=== PATIENT | male | born 1980 | race Hispanic/Latino ===

== ENCOUNTER 2018-07-02 12:34 | Emergency (ER) | payer SELFPAY ==
--- NOTE | 2018-07-02 16:48 | ER ---
Nurse's Notes [facility] Name: Quang Quintana Age: 38 yrs Sex: Male : 1980 Arrival Date: 07/02/2018 Time: 12:38 Bed 28 Private MD: Diagnosis: Laceration without foreign body of eyelid and periocular area Presentation: 07/02 12:49 Presenting complaint: Patient states: right eye injury today, was throwing metal stuff sv in the trash and a piece of metal flew into his right eye. Pt has lacerations to the right eyelids. Transition of care: patient was not received from another setting of care. The patient denies any loss of vision. Onset of symptoms was July 02, 2018. Care prior to arrival: None. 12:49 Method Of Arrival: Ambulatory sv 12:49 Acuity: ASIF 3 sv 13:00 Mechanism of Injury: States "I was throwing a metal pipe in the garbage and it bounced kr2 up and hit me in the face". Risk Assessment: Do you want to hurt yourself or someone else? Patient reports no desire to harm self or others. Initial Sepsis Screen: Does the patient meet any 2 criteria? No. Patient's initial sepsis screen is negative. Does the patient have a suspected source of infection? Yes: Skin breakdown/wound. Historical: - Allergies: 12:51 No Known Allergies; sv - Home Meds: 12:51 None [Active]; sv - PMHx: 12:51 None; sv - PSHx: 12:51 Hernia repair; sv - Immunization history:: Last tetanus immunization: < 10 years ago. - Social history:: Smoking status: Patient/guardian denies using tobacco. - Ebola Screening: : No symptoms or risks identified at this time. Screenin:00 Abuse screen: Denies threats or abuse. Denies injuries from another. Nutritional kr2 screening: No deficits noted. Tuberculosis screening: No symptoms or risk factors identified. Fall Risk None identified. Assessment: 13:00 General: Appears in no apparent distress. uncomfortable, well groomed, well developed, kr2 well nourished, Behavior is calm, cooperative, appropriate for age. Pain: Complains of pain in right supraorbital ridge, right upper eyelid, medial canthus of right eye, lateral canthus of right eye and right lower eyelid Pain does not radiate. Pain currently is 8 out of 10 on a pain scale. Quality of pain is described as aching, tender, Is continuous. Neuro: Level of Consciousness is awake, alert, Oriented to person, place, time, situation. Cardiovascular: Capillary refill < 3 seconds in bilateral fingers Patient's skin is warm and dry. Respiratory: Airway is patent Respiratory effort is even, unlabored, Respiratory pattern is regular, symmetrical. GI: Abdomen is flat, non-distended. EENT: Eyes are tearing on right inner canthus Sclera/Cornea are clear in outer aspect of conjuctiva of right eye, iris of right eye and inner aspect of conjuctiva of right eye. Derm: Skin is healthy with good turgor, Skin is pink, warm \\T\\ dry. Musculoskeletal: Circulation, motion, and sensation intact. Injury Description: Laceration sustained to medial canthus of right eye and right lower eyelid and right inner canthus and right upper eyelid is clean, was sustained 30-60 minutes ago. no active bleeding noted at this time. 14:00 Reassessment: Patient appears in no apparent distress at this time. Patient and/or kr2 family updated on plan of care and expected duration. Pain level reassessed. Patient is alert, oriented x 3, equal unlabored respirations, skin warm/dry/pink. Patient denies pain at this time. 15:00 Reassessment: No changes from previously documented assessment. kr2 16:00 Reassessment: Patient appears in no apparent distress at this time. Patient and/or kr2 family updated on plan of care and expected duration. Pain level reassessed. Patient is alert, oriented x 3, equal unlabored respirations, skin warm/dry/pink. Patient denies pain at this time. Vital Signs: 12:51 BP 126 / 98; Pulse 74; Resp 18; Temp 97.5; Pulse Ox 100% ; Weight 102.51 kg; Height 6 sv ft. 1 in. (185.42 cm); Pain 2/10; 15:00 BP 118 / 78; Pulse 70; Resp 16; Pulse Ox 99% ; kr2 17:00 BP 124 / 90; Pulse 78; Resp 16; Pulse Ox 100% ; kr2 12:51 Body Mass Index 29.82 (102.51 kg, 185.42 cm) sv Visual Acuity: 13:00 Left Eye Visual acuity 20/20, ; Right Eye Visual acuity 20/20, ; Without Lenses; kr2 ED Course: 12:38 Patient arrived in ED. rg4 12:51 Triage completed. sv 12:52 Arm band placed on. sv 12:53 Loren Knight, RN is Primary Nurse. kr2 12:55 Master Cancino PA is PHCP. jr8 12:55 Bradley Ram MD is Attending Physician. jr8 13:00 Patient has correct armband on for positive identification. Bed in low position. Call kr2 light in reach. Side rails up X 1. Adult w/ patient. Pulse ox on. NIBP on. Door closed. Head of bed elevated. 14:13 initiated a transfer with Brit at the [facility] transfer center. eb 14:55 [facility] called and declined due to being at capacity. eb 16:48 Jose Chávez MD is Referral Physician. jr8 17:00 No provider procedures requiring assistance completed. Patient did not have IV access kr2 during this emergency room visit. 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 Exp: kr2 08/17/2020. Lot #: [id number]. } Route: IM; Site: right deltoid; 23:35 Follow up: Response: No adverse reaction kr2 Outcome: 16:48 Discharge ordered by . jr8 17:00 Discharged to home ambulatory, with family. kr2 17:00 Condition: good 17:00 Discharge instructions given to patient, Instructed on discharge instructions, follow up and referral plans. medication usage, Demonstrated understanding of instructions, follow-up care, medications, Prescriptions given X 1. 17:06 Patient left the ED. kr2 Signatures: Ewelina Bro RN RN Master Cancino PA PA jr8 Crystal Dotson rg4 Loren Knight RN RN kr2 Catie Lawrence Corrections: (The following items were deleted from the chart) 23:34 23:33 Right Eye Without Lenses, 20/20, Left Eye Without Lenses, 20/20 kr2 kr2
--- NOTE | 2018-07-02 16:49 | EDPHYS ---
Physician Documentation [facility] Name: Quang Quintana Age: 38 yrs Sex: Male : 1980 Arrival Date: 07/02/2018 Time: 12:38 Bed 28 Private MD: ED Physician Bradley Ram HPI: 07/02 14:48 This 38 yrs old Male presents to ER via Ambulatory with complaints of Eye jr8 Injury. 14:48 Onset: The symptoms/episode began/occurred acutely, today. Associated signs and jr8 symptoms: Pertinent positives: None. Patient does not utilize any form of vision correction. Severity of symptoms: At their worst the symptoms were moderate in the emergency department the symptoms are unchanged. The patient has not experienced similar symptoms in the past. The patient has not recently seen a physician. Was at work when metal bar hit him in right eye. Denies intraocular pain or visual disturbance. Stated that he has lacerations to external eye . Historical: - Allergies: 12:51 No Known Allergies; sv - Home Meds: 12:51 None [Active]; sv - PMHx: 12:51 None; sv - PSHx: 12:51 Hernia repair; sv - Immunization history:: Last tetanus immunization: < 10 years ago. - Social history:: Smoking status: Patient/guardian denies using tobacco. - Ebola Screening: : No symptoms or risks identified at this time. ROS: 14:48 ENT: Negative for injury, pain, and discharge, Neck: Negative for injury, pain, and jr8 swelling, Cardiovascular: Negative for chest pain, palpitations, and edema, Respiratory: Negative for shortness of breath, cough, wheezing, and pleuritic chest pain, Abdomen/GI: Negative for abdominal pain, nausea, vomiting, diarrhea, and constipation, Back: Negative for injury and pain, MS/Extremity: Negative for injury and deformity, Skin: Negative for injury, rash, and discoloration, Neuro: Negative for headache, weakness, numbness, tingling, and seizure. 14:48 Eyes: Positive for injury or acute deformity, of the right upper eyelid, right inner canthus and right lower eyelid. Exam: 14:48 Visual Acuity: I have reviewed the nursing documentation. Visual acuity is within jr8 normal limits. 14:48 Head/Face: Normocephalic, atraumatic. ENT: Nares patent. No nasal discharge, no septal abnormalities noted. Tympanic membranes are normal and external auditory canals are clear. Oropharynx with no redness, swelling, or masses, exudates, or evidence of obstruction, uvula midline. Mucous membranes moist. Neck: Trachea midline, no thyromegaly or masses palpated, and no cervical lymphadenopathy. Supple, full range of motion without nuchal rigidity, or vertebral point tenderness. No Meningismus. Cardiovascular: Regular rate and rhythm with a normal S1 and S2. No gallops, murmurs, or rubs. Normal PMI, no JVD. No pulse deficits. Respiratory: Lungs have equal breath sounds bilaterally, clear to auscultation and percussion. No rales, rhonchi or wheezes noted. No increased work of breathing, no retractions or nasal flaring. Abdomen/GI: Soft, non-tender, with normal bowel sounds. No distension or tympany. No guarding or rebound. No evidence of tenderness throughout. Back: No spinal tenderness. No costovertebral tenderness. Full range of motion. Skin: Warm, dry with normal turgor. Normal color with no rashes, no lesions, and no evidence of cellulitis. MS/ Extremity: Pulses equal, no cyanosis. Neurovascular intact. Full, normal range of motion. Neuro: Awake and alert, GCS 15, oriented to person, place, time, and situation. Cranial nerves II-XII grossly intact. Motor strength 5/5 in all extremities. Sensory grossly intact. Cerebellar exam normal. Normal gait. 14:48 Eyes: Periorbital structures: laceration, that is deep, that is linear, on the right upper eyelid, medial canthus of right eye and right lower eyelid, Pupils: equal, round, and reactive to light and accomodation, Extraocular movements: intact throughout, Conjunctiva: normal, Corneas: are normal, Sclera: no appreciated abnormality, Anterior chamber: normal, no hyphema, Examination of the other eye reveals no obvious gross abnormality. Vital Signs: 12:51 BP 126 / 98; Pulse 74; Resp 18; Temp 97.5; Pulse Ox 100% ; Weight 102.51 kg; Height 6 sv ft. 1 in. (185.42 cm); Pain 2/10; 15:00 BP 118 / 78; Pulse 70; Resp 16; Pulse Ox 99% ; kr2 17:00 BP 124 / 90; Pulse 78; Resp 16; Pulse Ox 100% ; kr2 12:51 Body Mass Index 29.82 (102.51 kg, 185.42 cm) sv Visual Acuity: 13:00 Left Eye Visual acuity 20/20, ; Right Eye Visual acuity 20/20, ; Without Lenses; kr2 MDM: 12:56 Patient medically screened. jr8 14:50 Data reviewed: vital signs, nurses notes. Data interpreted: Pulse oximetry: on room air jr8 is 100 %. Interpretation: normal. Counseling: I had a detailed discussion with the patient and/or guardian regarding: the historical points, exam findings, and any diagnostic results supporting the discharge/admit diagnosis, the need to transfer to another facility. ED course: Had Dr. Spicer evaluate patient as well. Patient has two lacerations. One on the upper lid down to the musculature and extending to the medial right canthus that penetrates deep medial. Has a second lower lid one extending to the medial canthus as well. Consulted Dr. Chávez on this case and will see patient in the ED for repair . 16:43 ED course: Dr. Chávez came and evaluated patient. Options given to go to surgery for jr8 possible repair or to leave to let naturally heal since his lower duct was intact. Patient opted for natural healing process. Will be put on antibiotics. 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 Exp: kr2 08/17/2020. Lot #: [id number]. } Route: IM; Site: right deltoid; 23:35 Follow up: Response: No adverse reaction kr2 Disposition: 07/02/18 16:48 Discharged to Home. Impression: Laceration without foreign body of eyelid and periocular area. - Condition is Stable. - Discharge Instructions: Laceration Care, Adult. - Prescriptions for Keflex 500 mg Oral Capsule - take 1 capsule by ORAL route every 8 hours for 7 days; 21 capsule. - Medication Reconciliation Form, Thank You Letter, Antibiotic Education, Prescription Opioid Use form. - Follow up: Jose Chávez MD; When: As needed; Reason: Recheck today's complaints, Continuance of care, Re-evaluation by your physician. - Problem is new. - Symptoms have improved. Addendum: 07/04/2018 06:30 Co-signature as Attending Physician, Bradley Ram MD I agree with the assessment and c huertas plan of care. Signatures: Ewelina Bro, RN RN Bradley Echols MD MD cha Roszak, Josh, PA PA jr8 Loren Knight, RN RN kr2 Corrections: (The following items were deleted from the chart) 07/02 15:07 14:50 ED course: Had Dr. Spicer evaluate patient as well. Patient has two lacerations. jr8 One on the upper lid down to the musculature and extending to the medial right canthus that penetrates deep medial. Has a second lower lid one extending to the medial canthus as well. After evaluation it was in the best interest of the patient to be sent out to out for ophthalmologic evaluation . jr8 17:06 16:48 07/02/2018 16:48 Discharged to Home. Impression: Laceration without foreign body kr2 of eyelid and periocular area. Condition is Stable. Forms are Medication Reconciliation Form, Thank You Letter, Antibiotic Education, Prescription Opioid Use. Follow up: Jose Chávez; When: As needed; Reason: Recheck today's complaints, Continuance of care, Re-evaluation by your physician. Problem is new. Symptoms have improved. jr8
[2018-07-02] MEDS ORDERED: TETANUS & DIPHTHERIA TOX,ADULT 0.5 ML VIAL ONE (17:11)
== END 2018-07-02 17:06 | disposition home or self-care (01) ==
LOC: ER 12:34
DX: S01.111A Laceration without foreign body of right eyelid and periocular area, initial encounter (principal); Z23 Encounter for immunization; W22.8XXA Striking against or struck by other objects, initial encounter; Y99.0 Civilian activity done for income or pay
CPT/HCPCS: 90714; 99283